=== PATIENT | male | born 1960 | race Caucasian/White ===

== ENCOUNTER 2019-01-14 23:04 | Inpatient (IN) | payer OTHER ==
[~2019-01-14] VITALS: Ht 177.8 cm; Wt 65.6 kg
[2019-01-14 23:29] LABS: Source, Urine Clean Catch
[2019-01-14 23:30] LABS: BASOPHILS ABSOLUTE AUTO 0.03 K/mm3 (0.00-0.23); BASOPHILS PERCENT AUTO 1 % (0-2); EOSINOPHILS ABSOLUTE AUTO 0.13 K/mm3 (0.00-0.68); EOSINOPHILS PERCENT AUTO 3 % (0-6); IMMATURE GRAN ABSOLUTE AUTO 0.03 K/mm3 (0.00-0.10); IMMATURE GRAN PERCENT AUTO 1 % (0-1); LYMPHOCYTES ABSOLUTE AUTO 1.48 K/mm3 (0.84-5.20); LYMPHOCYTES PERCENT AUTO 32 % (21-46); MONOCYTES ABSOLUTE AUTO 0.76 K/mm3 (0.16-1.47); MONOCYTES PERCENT AUTO 17 % (4-13); Mean Corpuscular HGB 35.8 pg (26.0-34.0); Mean Corpuscular HGB Conc 33.3 g/dL (31.5-36.5); Mean Corpuscular Volume 108 fL (80-100); Mean Platelet Volume 9.4 fL (9.1-12.4); NEUTROPHILS ABSOLUTE AUTO 2.14 K/mm3 (1.96-9.15); NEUTROPHILS PERCENT AUTO 47 % (41-73); Platelet Count 134 K/mm3 (150-400); RDW Coefficient Variation 12.8 % (11.7-14.2); RDW Standard Deviation 50.5 fL (35.1-46.3); Red Blood Cell Count 2.79 M/mm3 (4.30-5.90); White Blood Cell Count 4.57 K/mm3 (4.00-11.30)
[2019-01-14 23:31] LABS: Bilirubin, Urine Neg (Neg); Blood, Urine Neg (Neg); Glucose Qualitative, Urine Neg (Neg); Ketones, Urine Neg (Neg); Leukocyte Esterase, Urine Neg (Neg); Nitrite, Urine Neg (Neg); Protein, Urine Neg (Neg); Urobilinogen, Urine NORM (Normal); pH, Urine 6.5 (5.0-8.0)
[2019-01-14 23:35] LABS: Appearance, Urine Clear (Clear); Color, Urine Yellow (P-Yellow)
[2019-01-14 23:42] LABS: U Amphetamine Screen Not Detected; U Barbituate Screen Not Detected; U Benzodiazapine Screen DETECTED; U Buprenorphine Screen Not Detected; U Cannabinoids Screen Not Detected; U Cocaine Screen Not Detected; U Methadone Screen Not Detected; U Methamphetamine Screen Not Detected; U Opiates Screen Not Detected; U Oxycodone Screen Not Detected; U Phencyclidine Screen Not Detected; U Propoxyphene Screen Not Detected
[2019-01-14 23:48] LABS: Alanine Aminotransfer (ALT/SGP 27 U/L (12-78); Albumin, Blood 2.5 g/dL (3.4-5.0); Albumin/Globulin Ratio 0.7 (0.8-1.8); Alk Phos 142 U/L (50-136); Anion Gap 7 mmol/L (6-16); Aspartate Aminotrans (AST/SGOT 39 U/L (12-37); Bilirubin, Total 0.8 mg/dL (0.1-1.0); Blood Urea Nitrogen 10 mg/dL (8-24); Bun/Creatinine Ratio 17.3 (12.0-20.0); CO2, Blood 25 mmol/L (21-32); Calcium, Blood 8.7 mg/dL (8.5-10.1); Chloride, Blood 108 mmol/L (98-108); Creatinine, Blood 0.58 mg/dL (0.60-1.20); Ethanol (Alcohol), Blood, Med <3 mg/dL; Globulin, Blood 3.8 g/dL (2.2-4.0); Glomerular Filtration Rate >60 (60-); Glucose, Blood 91 mg/dL (70-99); Potassium, Blood 3.9 mmol/L (3.5-5.5); Sodium, Blood 140 mmol/L (136-145); Total Protein, Blood 6.3 g/dL (6.4-8.2)
[2019-01-15 06:18] LABS: Anion Gap 6 mmol/L (6-16); Blood Urea Nitrogen 8 mg/dL (8-24); Bun/Creatinine Ratio 15.1 (12.0-20.0); CO2, Blood 24 mmol/L (21-32); Calcium, Blood 8.3 mg/dL (8.5-10.1); Chloride, Blood 112 mmol/L (98-108); Creatinine, Blood 0.53 mg/dL (0.60-1.20); Glomerular Filtration Rate >60 (60-); Glucose, Blood 80 mg/dL (70-99); Potassium, Blood 3.7 mmol/L (3.5-5.5); Sodium, Blood 142 mmol/L (136-145)
--- NOTE | 2019-01-15 13:00 | NUR ---
Recieved report from ER and patient arrived via gurney and patient was calm and relaxed and was able to answer one word answers. Talked with and gave update. He was 95% on RA. He has recently tried to get out of bed and is confused to the situation. VSS. Removed pant and helped with urinal and has 400ml yellow urine out.
--- NOTE | 2019-01-15 16:00 | NUR ---
HAVE BEEN ROOM MANY TIMES TO REORIENT PATIENT AND IS VERY WEAK AND IS SPINNING AROUND IN BED AND LEGS HANGING OVER. PLACED TIFFANIE ON AND HE STARTED PULLING AT TIFFANIE AND LINES AFTER STARTING FLUIDS. AND PLACED ON RIGHT SOFT WRIST RESTRAIT ON AND IMEDIATLEY PLACED SECOND RESTRAINT. PRECEDEX AT 0.5 MCG/KG/HR AND IS STARTING TO TAKE AFFECT. I STARTED BANANA BAG WELL. HAS COME BY AND GIVEN INFO AND IS GOING HOME FOR SEVERAL DAYS AND WILL CALL TO CHECK UP ON HIM.
--- NOTE | 2019-01-15 18:00 | NUR ---
PpATIENT IS RESTING QUIETLY AND AROUSES FOR CARE. HE REFUSED MEDS FROM NURSE WATCHING WHILE ON BREAK AND WHEN GOING IN TO SEE HIM DISCUSSED THE IMPORTANCE OF HIM GETTING BETTER. rESTRAINTS REMAIN IN PLACE.VSS
--- NOTE | 2019-01-15 19:20 | NUR ---
ASSESSMENT ASSUSMED CARE OF PT. PT SLEEPING, OPENS EYES TO VERBAL STIMULI BUT GOES BACK TO SLEEP QUICKLY. BILAT WRIST RESTRAINTS AND VEST RESTRAINTS ON. BED ALARM ON. LUNGS CLEAR BUT IN THE BASES. SPO2 84% ON ROOMAIR WHILE SLEEPING, PLACED ON 2 LITERS O2 VIA NC. SPO2 UP TO 97%. RESP EVEN AND NONLABORED. NONPRODUCTIVE COUGH NOTED AFTER TURNING PT. HEART RATE REGULAR, BP STABLE. IV 18G TO LEFT AC WITH PRECEDEX AT 0.6 MCQ/KG/HR, DECREASED TO 0.5 MCQ/KG/HR DUE TO SEDATION. ATTENDS AND SCD'S APPLIED. BT+ HYPOACTIVE.
--- NOTE | 2019-01-15 23:44 | NUR ---
REASSESSMENT PT SLEEPING, OPENS EYES BRIEFLY WITH REPOSITIONING. LUNGS CLEAR BUT DECREASED IN THE BASES. PRECEDEX DOWN TO 0.3 MCQ/KG/HR. BILAT SOFT WRIST RESTRAINTS AND VENT RESTRAINT ON. BED ALARM ON. ATTENDS CD&I.
--- NOTE | 2019-01-16 02:07 | NUR ---
ADL'S PT AWAKE, PULLING ON RESTRAINTS AND CURSING. INCONT OF URINE. ATTENDS CHANGED. ASSISTED PT WITH URINAL, VOIDED 800 ML. REPOSITIONED AND RESTRAINTS CHECKED.
--- NOTE | 2019-01-16 02:13 | NUR ---
PRECEDEX PT AWAKE, REORIENTED TO PLACE AND TIME FREQUENTLY. PT CONT TO PULL ON RESTRAINTS AND REACHING FOR IV LINES. INCREASED PRECEDEX UP TO 0.5 MCQ/KG/HR
[2019-01-16 04:04] LABS: BASOPHILS ABSOLUTE AUTO 0.04 K/mm3 (0.00-0.23); BASOPHILS PERCENT AUTO 1 % (0-2); EOSINOPHILS ABSOLUTE AUTO 0.13 K/mm3 (0.00-0.68); EOSINOPHILS PERCENT AUTO 3 % (0-6); Hematocrit 29.7 % (37.0-53.0); Hemoglobin 9.9 g/dL (13.5-17.5); IMMATURE GRAN ABSOLUTE AUTO 0.02 K/mm3 (0.00-0.10); IMMATURE GRAN PERCENT AUTO 0 % (0-1); LYMPHOCYTES ABSOLUTE AUTO 1.15 K/mm3 (0.84-5.20); LYMPHOCYTES PERCENT AUTO 26 % (21-46); MONOCYTES ABSOLUTE AUTO 0.62 K/mm3 (0.16-1.47); MONOCYTES PERCENT AUTO 14 % (4-13); Mean Corpuscular HGB Conc 33.3 g/dL (31.5-36.5); Mean Platelet Volume 9.3 fL (9.1-12.4); NEUTROPHILS ABSOLUTE AUTO 2.52 K/mm3 (1.96-9.15); NEUTROPHILS PERCENT AUTO 56 % (41-73); Platelet Count 139 K/mm3 (150-400); RDW Standard Deviation 49.6 fL (35.1-46.3); Red Blood Cell Count 2.83 M/mm3 (4.30-5.90); White Blood Cell Count 4.48 K/mm3 (4.00-11.30)
[2019-01-16 04:05] LABS: Mean Corpuscular Volume 105 fL (80-100)
[2019-01-16 04:28] LABS: Anion Gap 8 mmol/L (6-16); Blood Urea Nitrogen 5 mg/dL (8-24); Bun/Creatinine Ratio 10.7 (12.0-20.0); CO2, Blood 25 mmol/L (21-32); Calcium, Blood 7.6 mg/dL (8.5-10.1); Chloride, Blood 110 mmol/L (98-108); Creatinine, Blood 0.47 mg/dL (0.60-1.20); Glomerular Filtration Rate >60 (60-); Glucose, Blood 104 mg/dL (70-99); Magnesium, Blood 1.3 mg/dL (1.6-2.4); Potassium, Blood 3.6 mmol/L (3.5-5.5); Sodium, Blood 143 mmol/L (136-145)
--- NOTE | 2019-01-16 06:08 | NUR ---
SHIFT SUMMARY PT SLEEPING. PRECEDEX CURRENTLY AT 0.4 MCQ/KG/HR. PT AWAKENS TO VERBAL STIMULI, BUT QUICKLY GOES BACK TO SLEEP. BILAT WRIST RESTRAINTS REMOVED DURING THE NIGHT. BED ALARM, SIDE RAILS AND VEST RESTRAINTS STILL ON. PT MOVING SELF AROUND IN BED. IV FLUID D5 1/2 NS WITH 20 MEQ KCL AT 75 ML/HR, PRECEDEX AT 0.4 MCQ/KG/HR AND MAG 2GM IVPB INFUSING WITHOUT DIFFICULTY. PT STARTED ON 2 LITERS O2 DURING THE NIGHT FOR SPO2 DOWN TO 84% WHILE SLEEPING. SPO2 WITH 2 LITERS O2 NOW 95-97%. PT INCONT OF URINE ONCE DURING THE NIGHT. ASSISTED WITH URINAL, VOIDING CLEAR YELLOW URINE. ATTENDS CD&I. VSS. REPORT TO ON COMING NURSE
--- NOTE | 2019-01-16 07:15 | NUR ---
RECEIVED REPORT FROM ERIC SUTTON, AND ASSUMED CARE OF PT.
--- NOTE | 2019-01-16 07:48 | NUR ---
DR. ARELLANO AT BEDSIDE FOR EVALUATION.
--- NOTE | 2019-01-16 08:17 | NUR ---
NURSING SUMMARY SLEEPING, WAKES EASILY TO VOICE, CONFUSED, GARBLED SPEECH, FOLLOWS DIRECTIONS. TIFFANIE VEST IN PLACE, MOVES ALL OVER THE BED, ATTEMPTS TO GET OUT OF BED, FREQUENT REMINDERS AND REDIRECTION, FREQUENT NEED TO REORIENT. PRECEDEX INFUSING AT 0.3 MCG/KG/HR. LUNGS CLEAR, DIMINISHED AT THE BASES, 2L O2 NC, SATS 94-97%. SR ON MONITOR, HR 80-100. VSS, SBP 90'S - 108. VOIDED PER URINAL THIS AM AND WAS INCONTINENT IN ATTENDS, CLEANED PT, AND PLACED A NEW ATTENDS. PT CURRENTLY SITTING UP IN HIGH FOWLERS EATING BREAKFAST INDEPENDENTLY. RFA IV AND LAC IV. INFUSING D5 1/2 NS WITH 20 K AT 75 ML/HR AND JUST FINISHED MAGNESIUM 2G.
--- NOTE | 2019-01-16 09:00 | NUR ---
NURSING SUMMARY PT CONTINUES TO ATTEMPT TO CLIMB OUT OF BED AND PULLS AT LINES. PULLED NASAL CANNULA OFF, PICKING AT LINES/TIFFANIE VEST/GOWN AND BLANKETS. SCOOTS HIMSELF DOWN LOW IN THE BED WITH FEET HANGING OVER THE EDGE. WHEN ATTEMPT TO REDIRECT PT AND GET HIM TO SCOOT BACK UP IN THE BED HE BECAME ARGUMENTATIVE, INSISTING HE NEEDS TO BE IN BED LIKE THAT. WAITING A FEW MINUTES, ATTEMPTED TO REDIRECT AGAIN AND PT WAS ABLE TO FOLLOW DIRECTIONS AND SCOOT HIMSELF UP HIGHER IN THE BED AND TURN TO THE RIGHT STATING HE IS TIRED AND WANTS TO SLEEP.
--- NOTE | 2019-01-16 14:59 | NUR ---
NURSING SUMMARY PATIENT ALERT, ORIENTED X 3, TO SELF, LOCATION, AND REASON FOR BEING IN THE HOSPITAL. PRECEDEX WEANED TO 0.1 MCG/KG/HR, ATIVAN 2 MG IVP GIVEN, AND ZOFRAN 4 MG IVP GIVEN. CIWA = 9. REMOVED TIFFANIE VEST, ASSISTED PT TO SIT ON THE SIDE OF THE BED, PERFORMED ROM EXERCISES, STRONG EXTREMITIES, ASSISTED TO STAND USING THE WALKER. PT PERFORMED A FEW SQUATS TO STRETCH. ASSISTED PT TO AMBULATE AROUND THE DEPARTMENT, APPROX. 100 FEET, STEADY GAIT EVEN THOUGH PT HAS MILD TREMORS. WILL PROVIDE PT WITH FREQUENT REORIENTATION, REMINDERS, AND REDIRECTION.
--- NOTE | 2019-01-16 16:06 | NUR ---
Per admit trigger, attempted to meet with pt regarding advanced directive. UNfortunately he is non-responsive to voice and touch. He appears quite ill. No family or friends present. Food Counter Attendant services will remain available.
--- NOTE | 2019-01-16 19:35 | NUR ---
ASSESSMENT PT AWAKE, REORIENTED TO PLACE AND TIME. SCRAPPER ASSISTING WITH BED GUERIN AND URINAL. ATTENDS CHANGED. RESP EVEN AND NONLABORED. LUNGS CLEAR ON ROOMAIR. HEART RATE REGULAR, BP STABLE. BT+ ABD SOFT AND NONTENDER. DENIES N/V. VOIDING CLEAR YELLOW URINE. IV 20G TO RIGHT FOREARM SALINE LOCKED, SITE CLEAR. IV 18G TO LEFT AC WITH D5 1/2 NS WITH 20 KCL AT 75 ML/HR AND PRECEDEX AT 0.1 MCQ/KG/HR. SITE CLEAR. SCD'S ON. VEST RESTRAINT AND BED ALARM ON.
--- NOTE | 2019-01-16 20:09 | NUR ---
TEMP/CIWA TEMP 100.5 MED WITH TYLENOL. CIWA 16 MED WITH LIBRIUM. HS MEDS GIVEN
--- NOTE | 2019-01-16 20:43 | NUR ---
PT UP TO THE BATHROOM WITH TWO ASSIST. VOIDED, NO STOOL. BACK TO BED. PT HAVING MORE TREMORS AND UNSTABLE ON HIS FEET WHEN GETTING BACK TO BED. SCD'S ON. BED ALARM AND VEST RESTRAINT ON. TEMP UP TO 101.1. TEMP IN ROOM DECREASED AND EXTRA BLANKETS REMOVED.
--- NOTE | 2019-01-16 20:56 | NUR ---
TEMP NOTIFED HOSPITALIST MARY GRULLON REGARDING TEMP 101.1. ORDER RECEIVED TO GIVE EXTRA DOSE OF 325 MG TYENOL NOW
--- NOTE | 2019-01-16 22:37 | NUR ---
INCREASED PRECEDEX PT AGITATED AND YELLING AT STAFF. PT STATES,"STOP PULLING MY THINGS OFF THE WALL". TRIED TO REORIENT PT TO PLACE. PT STATES,"I KNOW I'M AT HOME. STOP TELLING ME I'M IN THE HOSPITAL". PRECEDEX INCREASED TO 0.7 MCQ/KG/HR
--- NOTE | 2019-01-16 23:30 | NUR ---
REASSESSMENT PT CONFUSED AND AGITATED. PULLING AT RESTRAINTS AND YELLING AT STAFF. PT IN VEST AND BILAT SOFT WRIST RESTRAINTS DUE TO PULLING ON LINES AND EQUIPMENT. LUNGS CLEAR ON ROOMAIR. HEART RATE REGULAR. PRECEDEX AT 0.7 MCQ/KG/HR WITH D5 1/2 NS 20 MEQ KCL AT 75 ML/HR. ATTENDS CD&I. BED ALARM ON.
[2019-01-17 04:17] LABS: BASOPHILS ABSOLUTE AUTO 0.03 K/mm3 (0.00-0.23); BASOPHILS PERCENT AUTO 1 % (0-2); EOSINOPHILS ABSOLUTE AUTO 0.07 K/mm3 (0.00-0.68); EOSINOPHILS PERCENT AUTO 1 % (0-6); Hematocrit 30.2 % (37.0-53.0); Hemoglobin 10.1 g/dL (13.5-17.5); IMMATURE GRAN ABSOLUTE AUTO 0.02 K/mm3 (0.00-0.10); IMMATURE GRAN PERCENT AUTO 0 % (0-1); LYMPHOCYTES ABSOLUTE AUTO 1.07 K/mm3 (0.84-5.20); LYMPHOCYTES PERCENT AUTO 18 % (21-46); MONOCYTES ABSOLUTE AUTO 1.04 K/mm3 (0.16-1.47); MONOCYTES PERCENT AUTO 18 % (4-13); Mean Corpuscular HGB 35.2 pg (26.0-34.0); Mean Corpuscular HGB Conc 33.4 g/dL (31.5-36.5); Mean Corpuscular Volume 105 fL (80-100); Mean Platelet Volume 9.6 fL (9.1-12.4); NEUTROPHILS PERCENT AUTO 62 % (41-73); Platelet Count 161 K/mm3 (150-400); RDW Coefficient Variation 12.9 % (11.7-14.2); RDW Standard Deviation 49.8 fL (35.1-46.3); Red Blood Cell Count 2.87 M/mm3 (4.30-5.90); White Blood Cell Count 5.83 K/mm3 (4.00-11.30)
[2019-01-17 04:33] LABS: Anion Gap 7 mmol/L (6-16); Blood Urea Nitrogen 5 mg/dL (8-24); Bun/Creatinine Ratio 9.9 (12.0-20.0); CO2, Blood 26 mmol/L (21-32); Calcium, Blood 7.7 mg/dL (8.5-10.1); Chloride, Blood 112 mmol/L (98-108); Glomerular Filtration Rate >60 (60-); Glucose, Blood 119 mg/dL (70-99); Magnesium, Blood 1.5 mg/dL (1.6-2.4); Sodium, Blood 145 mmol/L (136-145)
--- NOTE | 2019-01-17 06:24 | NUR ---
SHIFT SUMMARY PT CURRENTLY SLEEPING. PRECEDEX TITRATED UP FROM 0.1 MCQ/KG/HR TO 0.7 MCQ/KG/HR DUE TO CIWA 10-28. CURRENTLY PRECEDEX AT 0.6 MCQ/KG/HR. PT MED WITH ATIVAN AND LIBRIUM. PT PLACED IN BILAT SOFT WRIST RESTRAINTS DUE TO PULLING AT LINES AND EQUIPMENT. PT USING URINAL AT TIMES AND INCONT OF URINE AT TIMES. UP TO BS WITH TWO ASSIST AND HAD A XRTRA LARGE LOOSE STOOL. PT REORINETED FREQUENTLY. PT CONT TO BE CONFUSE AND YELLING AT STAFF ABOUT BEING IN HIS HOUSE. VSS. BED ALARM ON. PT PLACED ON 2 LITERS O2 WHILE SLEEPING DUE TO SPO2 DOWN TO 85% ON ROOMAIR WHILE SLEEPING. REPORT TO ON COMING NURSE
--- NOTE | 2019-01-17 07:30 | NUR ---
ASSUMED CARE OF PATIENT; SEE ASSESSMENT CHARTING FOR DETAILS. PATIENT SLEEPING IF NOT DISTURBED; AROUSES TO MODERATELY, LOUD, VERBAL STIMULI. LUNGS CLEAR; OXYGEN AT 2L/NC D/T BIOX. DROPS DURING SLEEP. PRECEDEX DRIP REMAINS AT 0.6MCG/KG/MIN. RESTRAINED WITH TIFFANIE VEST RESTRAINT AND BILAT. WRIST RESTRAINTS. BEHAVIOUR HAS BEEN LABILE; PATIENT CURRENTLY UNAWARE WHERE HE IS, THE DATE/MONTH/YEAR. KNOWS HIS NAME AND HIS FAMILY. IVF OF D51/2NS WITH 20MEQ KCL INFUSING AT 75ML/HR. DR. ARELLANO ROUNDING; ORDERED 2GM MAG SULFATE D/T MAG. LEVEL DOWN TO 1.5. SPEECH GARBLED AND DIFFICULT TO UNDERSTAND. MONITOR REMAINS NSR WITHOUT ECTOPY; SBP 90'S TO 120'S.
--- NOTE | 2019-01-17 09:30 | NUR ---
PRECEDEX REDUCED TO 0.4MCG/KG/MIN.; PATIENTMORE ALERT; TAKING A FEW BITES OF FOOD WITH ASSISTANCE; ABLE TO DRINK FLUIDS ON OWN BUT VERY SLOW TO GET CUP TO MOUTH; NO S/SX'S OF CHOKING.
--- NOTE | 2019-01-17 10:30 | NUR ---
DANGLED AT BEDSIDE WITH ASSIST. OF RN; ATTEMPTED TO STAND BUT BALANCE POOR; ASSITED BACK INTO BED QUICKLY; NO INJURY ETC. PATIENT REMAINS DISORIENTED TO FACILITY BUT AWARE HE IS IN [place], OR. THOUGHT IT WAS 2019 BUT AFTER RN ASKED HIM TO THINK ABOUT IT HE CAME UP WITH 2019.
--- NOTE | 2019-01-17 13:00 | NUR ---
PRECEDEX DOWN TO 0.2MCG/KG/MIN; BED ALARM REMAINS ON AND TIFFANIE VEST SECURED BUT BILAT. SOFT WRIST RESTRAINTS REMOVED TO ALLOW PATIENT TO CHANGE TV CHANNEL/ USE CALL BUTTON, BLOW NOSE ETC; STATES HE WILL NOT PULL ON LINES.
--- NOTE | 2019-01-17 18:00 | NUR ---
SUMMARY: SPOUSE AND STEP DAUGHTER CALLED SEVERAL TIMES T/O DAY TO CHECK ON PATIENTS' STATUS. SPOUSE WOULD LIKE PATIENT ADMITTED TO AN INPATIENT FACILITY, NEAR [facility], OR, SO HE WOULD BE CLOSER TO HOME (ONCE HE IS THROUGH THE ACUTE WITHDRAWALS AND IS DC'D FROM HOSPITAL); FOR ONGOING TX/THERAPY FOR ALCOHOLISM. PATIENT MICHELLE. DINNER WELL; FED SELF AND ABLE TO USE UTENSILS, ETC MUCH MORE NORMALLY; REACHING FORK TO MOUTH ETC IN NORMAL MOTION. TURNED ONTO L SIDE WITH PILLOW; TIFFANIE KEPT ON PATIENT BUT NOT TIGHTENED; INFORMED PATIENT THAT HE WAKES UP CONFUSED AND MAY TRY TO GET OOB TO VOID ETC; BED ALARM SET, ALSO. PRECEDEX DRIP AT 0.2MCG/KG/MIN AND D51/2NS INFUSING AT 75ML/HR. WILL REPORT TO ONCOMING RN.
--- NOTE | 2019-01-17 20:01 | NUR ---
PT RESTING IN BED. HAS TIFFANIE VEST ON AND BED ALARM DUE TO IMPULSIVENESS AND FALL RISK. PT HAD A MOMENT WHERE HE WAS CALLING OUT TO "[facility]" AND ANGRY WITH HIM MOVING HIS BELONGINGS AROUND IN THE HALLWAY. PT REORIENTS EASILY AND IS ABLE TO STATE DATE WITHIN ONE DAY AND STATES "WELL I'VE BEEN IN HERE SINCE THE ". GAVE LIBRIUM SEE DONATO. ON PRECEDEX 0.2 ALSO. GOT PT TO BSC WITH 2 PERSON ASSIST AND PT DID WELL. WEAK LOWER EXTREMITIES AND SLIGHTLY TREMULOUS. C/O BACK PAIN, TYLENOL GIVEN.
[2019-01-18 03:19] LABS: BASOPHILS ABSOLUTE AUTO 0.03 K/mm3 (0.00-0.23); BASOPHILS PERCENT AUTO 1 % (0-2); EOSINOPHILS ABSOLUTE AUTO 0.16 K/mm3 (0.00-0.68); EOSINOPHILS PERCENT AUTO 3 % (0-6); Hematocrit 28.3 % (37.0-53.0); Hemoglobin 9.6 g/dL (13.5-17.5); IMMATURE GRAN ABSOLUTE AUTO 0.02 K/mm3 (0.00-0.10); IMMATURE GRAN PERCENT AUTO 0 % (0-1); LYMPHOCYTES ABSOLUTE AUTO 1.54 K/mm3 (0.84-5.20); LYMPHOCYTES PERCENT AUTO 24 % (21-46); MONOCYTES ABSOLUTE AUTO 0.84 K/mm3 (0.16-1.47); MONOCYTES PERCENT AUTO 13 % (4-13); Mean Corpuscular HGB 36.4 pg (26.0-34.0); Mean Corpuscular HGB Conc 33.9 g/dL (31.5-36.5); Mean Corpuscular Volume 107 fL (80-100); Mean Platelet Volume 9.5 fL (9.1-12.4); NEUTROPHILS ABSOLUTE AUTO 3.91 K/mm3 (1.96-9.15); NEUTROPHILS PERCENT AUTO 60 % (41-73); Platelet Count 156 K/mm3 (150-400); RDW Coefficient Variation 13.2 % (11.7-14.2); RDW Standard Deviation 52.6 fL (35.1-46.3); Red Blood Cell Count 2.64 M/mm3 (4.30-5.90)
[2019-01-18 03:37] LABS: Anion Gap 7 mmol/L (6-16); Blood Urea Nitrogen 5 mg/dL (8-24); Bun/Creatinine Ratio 8.8 (12.0-20.0); CO2, Blood 24 mmol/L (21-32); Calcium, Blood 7.4 mg/dL (8.5-10.1); Chloride, Blood 110 mmol/L (98-108); Creatinine, Blood 0.57 mg/dL (0.60-1.20); Glomerular Filtration Rate >60 (60-); Glucose, Blood 96 mg/dL (70-99); Magnesium, Blood 1.7 mg/dL (1.6-2.4); Potassium, Blood 3.8 mmol/L (3.5-5.5); Sodium, Blood 141 mmol/L (136-145)
--- NOTE | 2019-01-18 05:53 | NUR ---
SUMMARY PT RESTING IN BED. A/O TO PERSON, PLACE, AND DATE. PT WAS OOB SEVERAL TIMES DURING THE NIGHT. WEAK LE'S BUT WITH 2 PERSON ASSIST AND FWW PT DOES WELL. STILL A LITTLE IMPULSIVE. PRECEDEX WAS TURNED OFF THIS AM AND PT IS DOING WELL. NO HALLUCINATIONS SINCE BEGINING OF SHIFT. GOT SCHEDULED LIBRIUM AND ONE PRN DOSE. ABLE TO USE CALL LIGHT APPROPRIATELY BUT STILL HAVE BED ALARM ARMED DUE TO IMPULSIVENESS. HAS BEEN OUT OF RESTRAINTS SINCE 2199. NO SIGN OF DISTRESS.
--- NOTE | 2019-01-18 07:13 | NUR ---
DR. ARELLANO CHANGED PATIENT TO MED. FLOOR STATUS; SEE FURTHER ORDERS.
--- NOTE | 2019-01-18 07:30 | NUR ---
ASSUMED CARE OF PATIENT; SEE ASSESSMENT CHARTING FOR DETAILS. PATIENT ALERT/ORIENTED; ANSWERING MOST QUESTIONS APPROPRIATELY. THOUGHT THE YEAR WAS 2019 AND WHEN RN SAID "NO" PATIENT THOUGHT A MOMENT AND SAID 2018. KNEW IT WAS JANUARY, AWARE HE IS IN THE HOSPITAL; SPOKE TO SPOUSE ON PHONE THIS AM. EPISODES OF HALLUCINATIONS, EARLIER, THOUGHT HE WAS AT HOME AND THE HOUSE WAS A MESS; REORIENTED QUICKLY. DR. ARELLANO HERE AND CHANGED PATIENT TO MED. FLOOR STATUS, WITHOUT TELEMETRY. CIWA LEVEL WAS 4 THIS AM. OXYGEN REMOVED AND BIOX. MAINTAINING STABLE. REMAINS ON LIBRIUM 25MG PO Q 8 HOURS. RESTRAINTS REMAINS OFF BUT BED ALARM REMAINS ON FOR SAFETY.
--- NOTE | 2019-01-18 10:33 | NUR ---
HAD MID MORNING SNACK (COTTAGE CHEESE AND FRUIT); ONLY ATE SMALL AMOUNT OF BREAKFAST D/T NOT LIKING CEREALS (HOT OR COLD); DISLIKES MILK AND BREADS/MUFFINS; ATE EGG AND 1/2 BANANA. UP TO TOILET WITH USE OF WALKER AND SBA; SMALL BM. BACK TO BED, ALONE, WITH USE OF WALKER.
--- NOTE | 2019-01-18 14:00 | NUR ---
OOB WITHOUT ASSIST.; TO TOILET USING WALKER. REMAINS MEDICAL FLOOR STATUS BUT NO ROOMS AVAILABLE AT THIS TIME.
--- NOTE | 2019-01-18 18:00 | NUR ---
SUMMARY: REMAINS MED. FLOOR STATUS; NO ROOMS AVAILABLE. PATIENT USING WALKER AND GETTING IN/OUT OF BED FOR BRP; NO ISSUES NOTED. APPETITE FAIR TO GOOD; NO GI UPSET. IV FLUIDS OFF SINCE EARLY AM; TOLERATING FLUIDS WELL. ROUTINE LIBRIUM, 25MG PO, GIVEN Q 8HOURS ROUTINELY.
--- NOTE | 2019-01-18 23:45 | NUR ---
TRANSFERED PT TO 340 VIA W/C. PT ABLE TO AMB SELF TO CHAIR. A/O TO PERSON, PLACE, AND TIME. PLEASANT AND COOPERATIVE. REPORT GIVEN TO SHANNA CASTRO RN. NO SIGN OF DISTRESS.
--- NOTE | 2019-01-19 07:26 | NUR ---
SHIFT SUMMARY PT WAS AN ICU TRANSFER DURING THE NIGHT, ORIGINALLY ADMITTED FOR ETOH WITHDRAWAL. HE IS A&O X 3, AND OCC FORGETFUL. VITAL SIGNS STABLE. NO ACUTE CHANGES NOTED SINCE TRANSFER. WILL CONTINUE TO MONITOR AND TREAT PER EMAR.
--- NOTE | 2019-01-19 15:20 | NUR ---
PATIENT D/C'D HOME WITH . D/C INSTRUCTIONS AND EDUCATION DISCUSSED WITH PATIENT AND COPY PROVIDED. PATIENT DENIES ANY FURTHER QUESTIONS OR CONCERNS. SPOKE WITH JAZMIN AT [facility] WHO PLANS TO FOLLOW UP WITH PATIENT IN THE MORNING REGARDING ETOH WITHDRAWAL PROGRAM.
== END 2019-01-19 15:59 | disposition home or self-care (01) | DRG 896 ==
LOC: ER 23:04 → ERHOLD 23:05 → ICUW 01-15 12:15 → MEDS 01-18 23:45 → ENPENDDIS 01-19 10:57 → MEDS 01-19 15:59
PROVIDERS: Emergency Medicine; Hospitalist; ADMIT Hospitalist
DX: F10.239 Alcohol dependence with withdrawal, unspecified (principal); G93.41 Metabolic encephalopathy; D64.9 Anemia, unspecified; D69.6 Thrombocytopenia, unspecified; E83.42 Hypomagnesemia
CPT/HCPCS: 36415; 80048; 80053; 81003; 82607; 82746; 83735; 85025; 93005; 93010; 96361; 96372-59; 96374; 96375; 96376; 97161; 99285-25; G0378; G0480; J1650; J2060; J2405; J3475; J7030; J7042